=== PATIENT | female | born 1990 | race Caucasian/White ===

== ENCOUNTER 2019-01-24 17:45 | Emergency (ER) | payer OTHER ==
[~2019-01-24] VITALS: Ht 152.4 cm; Wt 72.7 kg
[~2019-01-24 17:45] MED LIST: CIPRO500 MG OR; CIPRO500 MG PO; PYRIDIUM200 MG OR
[2019-01-24] MEDS ORDERED: ZOFRAN4 M1 PO (19:54)
[2019-01-24 20:00] VITALS: BP 133/98
== END 2019-01-24 20:10 | disposition home or self-care (01) | DRG 153 ==
LOC: ED 17:45
DX: J06.9 Acute upper respiratory infection, unspecified (principal)

== ENCOUNTER 2019-08-10 13:22 | Emergency (ER) | payer OTHER, MEDICAID ==
[~2019-08-10] VITALS: Ht 152.4 cm; Wt 71.0 kg
[~2019-08-10 13:22] MED LIST changes: +ZOFRAN4 M1 PO
[2019-08-10] MEDS ORDERED: WELLBUTRIN100 M2 PO (13:30)
[2019-08-10] MEDS ORDERED: CIPROFLOXACN500 MG PO (14:26)
[2019-08-10] MEDS ORDERED: BACTRIM DS1 TAB PO (14:26)
[2019-08-10 14:53] VITALS: BP 126/73
== END 2019-08-10 14:55 | disposition home or self-care (01) ==
LOC: ED 13:22
DX: S91.332A Puncture wound without foreign body, left foot, initial encounter (principal); W45.0XXA Nail entering through skin, initial encounter; Y93.89 Activity, other specified; Y92.009 Unspecified place in unspecified non-institutional (private) residence as the place of occurrence of the external cause

== ENCOUNTER 2020-01-30 17:49 | Emergency (ER) | payer OTHER ==
[~2020-01-30] VITALS: Ht 152.4 cm; Wt 71.0 kg
[~2020-01-30 17:49] MED LIST changes: +BACTRIM DS1 TAB PO; +CIPROFLOXACN500 MG PO; +WELLBUTRIN100 M2 PO
[2020-01-30] MEDS ORDERED: LEVOTHYROXIN50 MCG PO (18:05)
[2020-01-30] MEDS ORDERED: AMOXICILLIN875 MG PO (19:04)
[2020-01-30 19:07] VITALS: BP 108/72
== END 2020-01-30 19:13 | disposition home or self-care (01) | DRG 153 ==
LOC: ED 17:49
DX: J06.9 Acute upper respiratory infection, unspecified (principal); F41.9 Anxiety disorder, unspecified; Z20.828 Contact with and (suspected) exposure to other viral communicable diseases

== ENCOUNTER 2020-04-29 07:58 | Emergency (ER) | payer SELFPAY ==
[~2020-04-29] VITALS: Ht 152.4 cm; Wt 72.0 kg
[~2020-04-29 07:58] MED LIST changes: +AMOXICILLIN875 MG PO; +LEVOTHYROXIN50 MCG PO
[2020-04-29 09:20] VITALS: BP 119/67
== END 2020-04-29 09:35 | disposition home or self-care (01) | DRG 951 ==
LOC: ED 07:58
DX: Z20.822 Contact with and (suspected) exposure to COVID-19 (principal)

== ENCOUNTER 2020-07-14 17:02 | Emergency (ER) | payer MEDICAID ==
[~2020-07-14] VITALS: Ht 152.4 cm; Wt 54.6 kg
[2020-07-14 17:36] LABS: HEMATOCRIT 39.4 % (37.0-47.0); HEMOGLOBIN 13.2 g/dl (12.0-16.0); IMMATURE GRANULOCYTES 0.4 % (0.0-5.0); MEAN CELL VOLUME 88.5 fL CALC (80.0-100.0); MEAN CORPUSCULAR HGB 29.7 pG CALC (26.0-32.0); MEAN CORPUSCULAR HGB CONC 33.5 g/dL CAL (32.0-36.0); NEUT# 13.05 thou/uL (2.00-7.15); RED BLOOD COUNT 4.45 mill/uL (4.20-5.60)
[2020-07-14 17:55] LABS: ALBUMIN 4.7 g/dL (3.2-5.0); ALKALINE PHOSPHATASE 61 u/l (38-126); ANION GAP 15 (6-22 (CALC)); BILIRUBIN, TOTAL 0.8 mg/dL (0.0-1.4); BUN 13 mg/dL (7-17); BUN/CREATININE RATIO 25 (12-20 (CALC)); C-REACTIVE PROTEIN 1.5 mg/dL (0-0.9); CARBON DIOXIDE 22 mmol/l (22-30); CHLORIDE 102 mmol/l (95-108); CREATININE 0.5 mg/dL (0.5-1.0); GFR > 60 ML/MIN (>=60 (CALC)); GFR FOR AFR.AMER. > 60 ML/MIN (>=60 (CALC)); POTASSIUM 3.4 mmol/l (3.5-5.1); SGOT/AST 25 u/l (14-36); SODIUM 135 mmol/l (137-146); TOTAL PROTEIN 8.8 g/dL (6.3-8.2)
[2020-07-14 18:20] LABS: URINE BILIRUBIN - DIPSTICK NEGATIVE (NEGATIVE); URINE BLOOD DIPSTICK NEGATIVE (NEGATIVE); URINE COLOR YELLOW; URINE GLUCOSE - DIPSTICK NEGATIVE (NEGATIVE); URINE KETONE NEGATIVE (NEGATIVE); URINE LEUK ESTERASE NEGATIVE (NEGATIVE); URINE PROTEIN - DIPSTICK NEGATIVE (NEG-TRACE); URINE UROBILINOGEN - DIPSTICK 0.2 E.U./dL (0.2)
[2020-07-14 18:29] LABS: URINE NITRITE - DIPSTICK NEGATIVE (Negative)
[2020-07-14 20:09] VITALS: BP 126/77
== END 2020-07-14 20:21 | disposition home or self-care (01) | DRG 153 ==
LOC: ED 17:02
PROVIDERS: Emergency Medicine
DX: J06.9 Acute upper respiratory infection, unspecified (principal); J02.9 Acute pharyngitis, unspecified; F41.9 Anxiety disorder, unspecified; Z20.822 Contact with and (suspected) exposure to COVID-19

== ENCOUNTER 2020-09-17 06:33 | Emergency (ER) | payer MEDICAID ==
[2020-09-17 07:41] VITALS: BP 122/68
== END 2020-09-17 08:06 | disposition home or self-care (01) ==
LOC: ED 06:33
DX: Z20.822 Contact with and (suspected) exposure to COVID-19 (principal); F41.9 Anxiety disorder, unspecified

== ENCOUNTER 2022-06-18 17:22 | Emergency (ER) | payer OTHER, MEDICAID ==
[~2022-06-18] VITALS: Ht 152.4 cm; Wt 71.2 kg
[2022-06-18 18:31] VITALS: BP 136/87
[2022-06-18 18:57] LABS: BASO% 0.4 % (0-3); EOS% 1.1 % (0-8); HEMATOCRIT 40.5 % (37.0-47.0); HEMOGLOBIN 13.6 g/dl (12.0-16.0); IMMATURE GRANULOCYTES 0.2 % (0.0-5.0); LYMPH% 9.5 % (15-41); MEAN CELL VOLUME 86.4 fL CALC (80.0-100.0); MEAN CORPUSCULAR HGB CONC 33.6 g/dL CAL (32.0-36.0); MONO% 8.4 % (2-13); NEUT# 4.58 thou/uL (2.00-7.15); NEUT% 80.4 % (42-76); RED BLOOD COUNT 4.69 mill/uL (4.20-5.60); RED CELL DISTRI WIDTH 12.1 % (11.5-15.5)
[2022-06-18] MEDS ORDERED: PROMETHAZINE HY25 M1 PO (19:55)
[2022-06-18] MEDS ORDERED: PAXLOVID PO (19:55)
[2022-06-18 20:11] VITALS: BP 136/87
== END 2022-06-18 20:12 | disposition home or self-care (01) | DRG 179 ==
LOC: ED 17:22
PROVIDERS: Family Medicine
DX: U07.1 COVID-19 (principal)

== ENCOUNTER 2023-09-07 06:30 | Emergency (ER) | payer OTHER ==
[2023-09-07] VITALS (12 sets, daily range): BP systolic 104–139; BP diastolic 70–88
[~2023-09-07] VITALS: Ht 152.4 cm; Wt 72.6 kg
[~2023-09-07 06:30] MED LIST changes: +ALLERGY RE50 MCG/ACT; +ELDERBERRY PO; +MEDDOSEPAK PO; +PAXLOVID PO; +PROMETHAZINE HY25 M1 PO; +TRAMADOL HYDROC50 M1 PO; +VIBRAMYCIN100 M2 PO; +VITA PO
[2023-09-07] MEDS ORDERED: DiphenhydrAMINE HCL 50 MG/ML SDV IV ONE (07:25)
[2023-09-07] MEDS ORDERED: SODIUM CHLORIDE 0.9% 1,000 ML IV ONE (07:25)
[2023-09-07] MEDS ORDERED: METOCLOPRAMIDE HCL 10 MG/2 ML SDV IV ONE (07:25)
[2023-09-07] MEDS ORDERED: KETOROLAC TROMETHAMINE 30 MG/ML SDV IV ONE (07:25)
[2023-09-07 07:31] LABS: BASO% 0.6 % (0-3); EOS% 3.3 % (0-8); HEMATOCRIT 37.8 % (37.0-47.0); HEMOGLOBIN 13.1 g/dl (12.0-16.0); IMMATURE GRANULOCYTES 0.4 % (0.0-5.0); LYMPH% 27.5 % (15-41); MEAN CELL VOLUME 87.7 fL CALC (80.0-100.0); MEAN CORPUSCULAR HGB 30.4 pG CALC (26.0-32.0); MEAN CORPUSCULAR HGB CONC 34.7 g/dL CAL (32.0-36.0); MONO% 8.5 % (2-13); NEUT# 2.88 thou/uL (2.00-7.15); NEUT% 59.7 % (42-76); RED BLOOD COUNT 4.31 mill/uL (4.20-5.60); RED CELL DISTRI WIDTH 11.9 % (11.5-15.5)
[2023-09-07 07:34] LABS: URINE BILIRUBIN - DIPSTICK Negative (NEGATIVE); URINE BLOOD DIPSTICK Negative (NEGATIVE); URINE GLUCOSE - DIPSTICK Negative (NEGATIVE); URINE KETONE Negative (NEGATIVE); URINE LEUK ESTERASE Negative (NEGATIVE); URINE NITRITE - DIPSTICK Negative (Negative); URINE PH >=9.0 (4.5-8.0); URINE PROTEIN - DIPSTICK Negative (NEG-TRACE); URINE UROBILINOGEN - DIPSTICK 0.2 E.U./dL (0.2)
[2023-09-07 07:35] LABS: HCG SERUM/URINE (NEG/POS) NEGATIVE (NEGATIVE)
[2023-09-07 07:36] LABS: URINE COLOR Yellow
[2023-09-07 07:47] LABS: ALBUMIN 4.4 g/dL (3.2-5.0); BILIRUBIN, TOTAL 0.7 mg/dL (0.02-1.3); CREATININE 0.6 mg/dL (0.5-1.0); TOTAL PROTEIN 7.6 g/dL (6.3-8.2)
[2023-09-07 07:48] LABS: POTASSIUM 4.1 mmol/l (3.5-5.1)
[2023-09-07] MEDS ORDERED: DEXAMETHASONE SOD. PHOSPHATE 10 MG/ML VIAL IV ONE (08:45)
== END 2023-09-07 09:44 | disposition home or self-care (01) | DRG 103 ==
LOC: ED 06:30
PROVIDERS: Family Medicine
DX: R51.9 Headache, unspecified (principal); R11.2 Nausea with vomiting, unspecified; F41.9 Anxiety disorder, unspecified; Z20.822 Contact with and (suspected) exposure to COVID-19

== ENCOUNTER 2023-10-09 16:32 | Emergency (ER) | payer SELFPAY ==
[2023-10-09] VITALS (7 sets, daily range): BP systolic 106–123; BP diastolic 61–85
[~2023-10-09] VITALS: Ht 152.4 cm; Wt 73.0 kg
[2023-10-09] MEDS ORDERED: KETOROLAC TROMETHAMINE 30 MG/ML SDV IM ONE (17:35)
[2023-10-09] MEDS ORDERED: ZOFRAN4 MG/TAB PO (18:34)
== END 2023-10-09 19:19 | disposition home or self-care (01) | DRG 866 ==
LOC: ED 16:32
DX: B34.9 Viral infection, unspecified (principal); F41.9 Anxiety disorder, unspecified; Z20.822 Contact with and (suspected) exposure to COVID-19

== ENCOUNTER 2024-01-16 07:08 | Emergency (ER) | payer SELFPAY ==
[2024-01-16] VITALS (9 sets, daily range): BP systolic 105–130; BP diastolic 62–72
[~2024-01-16] VITALS: Ht 152.4 cm; Wt 76.2 kg
[~2024-01-16 07:08] MED LIST changes: +ZOFRAN4 MG/TAB PO
[2024-01-16] MEDS ORDERED: EC-NAPROSYN375 MG PO (07:33)
[2024-01-16] MEDS ORDERED: KETOROLAC TROMETHAMINE 30 MG/ML SDV IM ONE (07:40)
[2024-01-16 08:03] LABS: BASO% 0.2 % (0-3); EOS% 5.4 % (0-8); HEMATOCRIT 39.6 % (37.0-47.0); HEMOGLOBIN 13.3 g/dl (12.0-16.0); IMMATURE GRANULOCYTES 0.4 % (0.0-5.0); LYMPH% 27.2 % (15-41); MEAN CORPUSCULAR HGB 30.2 pG CALC (26.0-32.0); MEAN CORPUSCULAR HGB CONC 33.6 g/dL CAL (32.0-36.0); MONO% 8.9 % (2-13); NEUT# 2.68 thou/uL (2.00-7.15); NEUT% 57.9 % (42-76); RED BLOOD COUNT 4.4 mill/uL (4.20-5.60); RED CELL DISTRI WIDTH 11.7 % (11.5-15.5)
[2024-01-16 08:30] LABS: ALBUMIN 4.4 g/dL (3.2-5.0); ALKALINE PHOSPHATASE 37 u/l (38-126); ANION GAP 13 (6-22 (CALC)); BUN 8 mg/dL (7-17); BUN/CREATININE RATIO 16 (12-20 (CALC)); CARBON DIOXIDE 25 mmol/l (22-30); CHLORIDE 105 mmol/l (95-108); CREATININE 0.5 mg/dL (0.5-1.0); ESTIMATED GFR 129 ML/MIN (>=90 (CALC)); POTASSIUM 3.7 mmol/l (3.5-5.1); SGOT/AST 26 u/l (14-36); SODIUM 140 mmol/l (137-146); TOTAL PROTEIN 7.7 g/dL (6.3-8.2)
[2024-01-16 08:38] LABS: BILIRUBIN, TOTAL 0.4 mg/dL (0.02-1.3)
[2024-01-16] MEDS ORDERED: ZPAK PO (15:03)
== END 2024-01-16 09:32 | disposition home or self-care (01) | DRG 153 ==
LOC: ED 07:08
PROVIDERS: Family Medicine
DX: J06.9 Acute upper respiratory infection, unspecified (principal); F41.9 Anxiety disorder, unspecified; Z20.822 Contact with and (suspected) exposure to COVID-19

== ENCOUNTER 2024-05-11 04:34 | Emergency (ER) | payer SELFPAY ==
[~2024-05-11] VITALS: Ht 152.4 cm; Wt 77.0 kg
[~2024-05-11 04:34] MED LIST changes: +EC-NAPROSYN375 MG PO; +ZPAK PO
[2024-05-11] MEDS ORDERED: HYDROmorphone HCL 2 MG/AMP IV STA (04:54)
[2024-05-11] MEDS ORDERED: SODIUM CHLORIDE 0.9% 1,000 ML IV STA (04:54)
[2024-05-11] MEDS ORDERED: DIATRIZOATE MEGLUMINE & SODIUM 30 ML/BTL PO ONE (04:55)
[2024-05-11] MEDS ORDERED: KETOROLAC TROMETHAMINE 30 MG/ML SDV IV ONE (04:55)
[2024-05-11] MEDS ORDERED: PROMETHAZINE HCL 25 MG/ML AMP IV ONE (04:55)
[2024-05-11 05:19] VITALS: BP 145/95
== END 2024-05-11 05:19 | disposition left against medical advice (07) | DRG 392 ==
LOC: ED 04:34
DX: R10.31 Right lower quadrant pain (principal); F41.9 Anxiety disorder, unspecified; Z53.29 Procedure and treatment not carried out because of patient's decision for other reasons
CPT/HCPCS: J1171; J2550